=== PATIENT | female | born 1995 | race African-American/Black ===

== ENCOUNTER 2022-08-06 03:48 | Inpatient (IN) | payer OTHER ==
[2022-08-06] MEDS ORDERED: METHYLERGONOVINE 0.2 MG/ML 1 ML AMP IM PRN (05:42)
[2022-08-06] MEDS ORDERED: OXYTOCIN 10 UNIT/ML 1 ML VIAL IM PRN (05:42)
[2022-08-06] MEDS: LACTATED RINGERS 1,000 ML IV SCH ×2 (05:42→09:25)
[2022-08-06] MEDS ORDERED: LIDOCAINE 0.5% (PF) 5 MG/ML (50 ML SDV) SQ PRN (05:42)
[2022-08-06] MEDS ORDERED: CARBOPROST TROMETHAMINE 250 MCG/ML 1 ML AMP IM PRN (05:42)
[2022-08-06] MEDS ORDERED: TERBUTALINE 1 MG/ML VIAL SQ PRN (05:42)
[2022-08-06] MEDS ORDERED: OXYTOCIN 30 UNITS/500 ML NS 30 UNIT in SALINE 1 500ML.BAG IV SCH (05:45)
[2022-08-06 05:59] LABS: Basophils % (A) 0 %; Eosinophils % (A) 0 %; HCT 29.8 % (34.0-46.0); HGB 9.8 gm/dL (11.4-16.0); Lymphocytes # (A) 0.8 k/uL (1.0-4.8); Lymphocytes % (A) 10 %; MCH 26.9 pg (25.0-35.0); MCHC 32.8 g/dL (31.0-37.0); MCV 81.9 fL (80.0-100.0); Mean Platelet Volume 10.3; Monocytes # (A) 0.3 k/uL (0-1.0); Monocytes % (A) 4 %; Neutrophils # (A) 7.3 k/uL (1.3-7.7); Neutrophils % (A) 85 %; Platelet Count 170 k/uL (150-450); RBC 3.64 m/uL (3.80-5.40); RDW 14.5 % (11.5-15.5); WBC 8.5 k/uL (3.8-10.6)
--- NOTE | 2022-08-06 08:59 | P.HPOB ---
History of Present Illness H&P Date: 08/06/22 Chief Complaint: Strong regular uterine contractions This is a 26-year-old female 2 para 1001 EDC 08/18/2022 at 38-2/7 weeks' gestation who presented with strong regular uterine contractions from home. She denies fluid leakage or vaginal bleeding. Fetus is been active throughout the . Past medical history is significant for anxiety and depression, cholelithiasis. Past surgical history benign lymph nodes removed from the neck at age 6. Current medications vitamins daily, vitamin B6 daily, baby aspirin daily. ALLERGIES none known. Family history significant for cholelithiasis, diverticulosis. Obstetrical history vaginal delivery 2020 liveborn female infant. Social history patient is single, father of the baby is involved. She is a previous tobacco smoker but quit with her . She does admit to daily marijuana use for anxiety. She denies alcohol or other drug use. history is significant for blood type O+, rubella status immune. VDRL testing, urine culture, hepatitis B surface antigen, HIV testing, gonorrhea and chlamydia cultures, group B strep cultures all negative. One-hour Glucola 114. On exam patient is 5 foot 4 inches, 160 pounds, blood pressure 113/72. The general physical exam is within normal limits. Chest is clear. Cervix is 4 cm dilated, 70% effaced, vertex presentation, -2 station, soft, anterior. Artificial amniorrhexis reveals clear fluid. heart rate is in the 140s with frequent accelerations consistent with reactive NST. Impression: 38-2/7 weeks intrauterine , here in active labor. All signs reassuring. Plan: Patient at this time is requesting epidural. Continue close maternal and surveillance. Continue oxytocin augmentation as needed. Anticipate normal spontaneous vaginal delivery. Review of Systems Constitutional: Reports as per HPI Past Medical History Past Medical History: No Reported History History of Any Multi-Drug Resistant Organisms: None Reported Past Surgical History: No Surgical Hx Reported Past Anesthesia/Blood Transfusion Reactions: No Reported Reaction Past Psychological History: Anxiety, Depression Smoking Status: Current every day smoker Past Drug Use History: Marijuana - Past Family History Father History Unknown: Yes Medications and Allergies Home Medications Medication Instructions Recorded Confirmed Type Pnv No.154/Iron Fum/Folic Acid 1 capsule PO DAILY 08/06/22 08/06/22 History [ Plus Vitamin Tablet] Allergies Allergy/AdvReac Type Severity Reaction Status Date / Time No Known Allergies Allergy Verified 08/06/22 03:51 Exam Vital Signs Temp Pulse Resp BP Pulse Ox 08/06/22 05:42 97.6 F 84 113/72 98 08/06/22 03:50 98.7 F 89 17 117/65 98 Intake and Output 08/05/22 08/06/22 08/06/22 22:59 06:59 14:59 Other: # Voids 0 Weight 72.575 kg See dictation under HPI please Results Result Diagrams: 08/06/22 05:45 Abnormal Lab Results - Last 24 Hours (Table) 08/06/22 Range/Units 05:45 RBC 3.64 L (3.80-5.40) m/uL Hgb 9.8 L (11.4-16.0) gm/dL Hct 29.8 L (34.0-46.0) % Lymphocytes # 0.8 L (1.0-4.8) k/uL Assessment and Plan Assessment: 38-2/7 weeks intrauterine , early active spontaneous labor. All signs reassuring. Plan: Continue close maternal and surveillance. Epidural was requested and anesthesia aware, on way. Anticipate normal spontaneous vaginal delivery. Time with Patient: Less than 30
[2022-08-06 09:27] LABS: Amphetamine Screen,Urine Not Detected (NotDetected); Barbiturate Screen,Urine Not Detected (NotDetected); Benzodiazepines Screen,Urine Not Detected (NotDetected); Cocaine Screen,Urine Not Detected (NotDetected); Methadone Screen, Urine Not Detected (NotDetected); Opiate Screen,Urine Not Detected (NotDetected); Oxycodone Screen, Urine Not Detected (NotDetected); Phencyclidine Screen,Urine Not Detected (NotDetected); Tricyclic Antidepressant,Urine Not Detected (NotDetected); Urn Cannabinoid Scrn Detected (NotDetected)
[2022-08-06] MEDS ORDERED: ROPIVACAINE 100 MG, fentaNYL (PF). 200 MCG in SODIUM CHLORIDE 0.9% 76 ML EPIDURAL ONE (10:00)
[2022-08-06] MEDS ORDERED: SIMETHICONE 80 MG CHEWABLE PO PRN (11:49)
[2022-08-06] MEDS ORDERED: ZOLPIDEM 5 MG TAB PO PRN (11:49)
[2022-08-06] MEDS ORDERED: HYDROCORTISONE 2.5% RECTAL CREAM 30 GM TUBE RECTAL PRN (11:49)
[2022-08-06] MEDS ORDERED: LANOLIN CREAM 5 GM TUBE TOPICAL PRN (11:49)
[2022-08-06] MEDS ORDERED: BENZOCAINE/MENTHOL SPRAY 1 GM/SPRAY AEROSOL TOPICAL PRN (11:49)
[2022-08-06] MEDS ORDERED: diphenhydrAMINE 50 MG/ML 1 ML VIAL IVP PRN ×2 (11:49)
[2022-08-06] MEDS ORDERED: diphenhydrAMINE 50 MG CAP PO PRN (11:49)
[2022-08-06] MEDS ORDERED: diphenhydrAMINE 25 MG CAP PO PRN (11:49)
--- NOTE | 2022-08-06 11:49 | P.PROBDLV ---
Vaginal Delivery Note - . Vaginal Delivery Note: This is a 26-year-old female 2 para 101 EDC 08/18/2022 38-2/7 weeks' gestation who presented in early spontaneous labor from home, group B strep cultures negative, blood type O+, rubella status immune. Please see my dictated history and physical for details. Artificial amniorrhexis revealed clear fluid. Oxytocin augmentation was started and titrated. Epidural was placed per her request. She was judged to be completely dilated at 1127 hrs. and began the second stage of labor at that time. Perineal body was prepped and draped in the usual sterile fashion. With excellent maternal expulsive efforts the 's head delivered occiput anterior and restituted accordingly. There was no nuchal cord. The right or anterior shoulder was gently delivered at which time the oropharynx, nasopharynx, and external nares were all bulb suctioned on the perineal body. Patient was officially delivered of a liveborn female infant at 1134 hours. Umbilical cord was doubly clamped and ligated, she was handed to waiting nurses for evaluation where scores of 9 and 9 at one and 5 minutes respectively were given. Placenta delivered spontaneously, it was inspected and noted to be intact with trivascular cord and a membranous insertion, at 1136 hours. At this time the perineal body was redraped. Careful inspection of the cervix, vagina, perineum, periurethral, and perirectal areas revealed a very small first-degree superficial right perineal laceration. This is repaired in the usual fashion with a singular [id number] suture of 3-0 repeat. Estimated blood loss 200 mL's. All sponge needle and enhancement counts are correct. weighs 2685 g or 5 lbs. 15 oz. The patient and her family are allowed to begin the bonding experience in the LDR.
[2022-08-06] MEDS ORDERED: ACETAMINOPHEN TAB 325 MG TAB PO PRN (12:55)
[2022-08-06] MEDS: IBUPROFEN 600 MG TAB PO PRN ×2 (14:04→19:47)
[2022-08-06] MEDS: SENNOSIDES-DOCUSATE SODIUM 1 EACH TAB PO SCH (19:47)
[2022-08-07] MEDS: IBUPROFEN 600 MG TAB PO PRN ×2 (04:29→20:22)
[2022-08-07 07:48] LABS: Basophils % (A) 0 %; Eosinophils % (A) 0 %; HCT 28.1 % (34.0-46.0); HGB 9.1 gm/dL (11.4-16.0); Hypochromasia Slight; Lymphocytes # (A) 1.1 k/uL (1.0-4.8); Lymphocytes % (A) 12 %; MCH 27.1 pg (25.0-35.0); MCHC 32.5 g/dL (31.0-37.0); MCV 83.5 fL (80.0-100.0); Mean Platelet Volume 10.3; Monocytes # (A) 0.4 k/uL (0-1.0); Monocytes % (A) 5 %; Neutrophils # (A) 7.1 k/uL (1.3-7.7); Neutrophils % (A) 80 %; Platelet Count 175 k/uL (150-450); RBC 3.36 m/uL (3.80-5.40); WBC 8.9 k/uL (3.8-10.6)
[2022-08-07] MEDS: SENNOSIDES-DOCUSATE SODIUM 1 EACH TAB PO SCH ×2 (08:24→20:22)
--- NOTE | 2022-08-07 11:34 | P.DS ---
Providers Date of admission: 08/06/22 05:25 Expected date of discharge: 08/07/22 Attending physician: Gina Roman Primary care physician: Stated None - Discharge Diagnosis(es) (1) Normal vaginal delivery Current Visit: Yes Status: Acute Hospital Course: the patient is a 26-year-old 2 para 1001 admitted at 38-2/7 weeks by good dating parameters in early labor. Her has been uncomplicated and group B strep status is negative. On labor and delivery, the patient hadunofficial rupture of membranes and an epidural catheter placed. She then had Pitocin augmentation started. She progressed to complete and then pushed to a normal spontaneous vaginal delivery of a viable 5 lbs. 15 oz. baby girl with Apgars of 9 at 1 minute and 9 at 5 minutes. Her course was unremarkable with vital signs remaining stable and her temperature was afebrile throughout. She was deemed stable for discharge on day #1 was discharged home to follow-up in the office in 6 weeks' time routinely. Discharge instructions included calling for any significantly increased bleeding or foul-smelling lochia, significantly increased fever or abdominal pain, perineal complaints, breast complaints, or anything else that concerned her. She is additionally instructed to have nothing in the vagina for at least 6 weeks time to include intercourse. She understood her instructions and agrees to follow up as noted above. Discharge medications included only [id number] analgesic pain medications as well as continued vitamins as she has opted to breast-feed. Maternal blood typeis O+ and rubella status is immune. Procedures: #1. Artificial rupture of membranes #2. Epidural analgesia #3. Pitocin a ugmentation #4. Normal spontaneous vaginal delivery #5. Repair of perineal laceration Patient Condition at Discharge: Stable Plan - Discharge Summary New Discharge Prescriptions: No Action Pnv No.154/Iron Fum/Folic Acid [ Plus Vitamin Tablet] 1 capsule PO DAILY Discharge Medication List Pnv No.154/Iron Fum/Folic Acid [ Plus Vitamin Tablet] 1 capsule PO DAILY 08/06/22 [History] Follow up Appointment(s)/Referral(s): Gina Roman MD [STAFF PHYSICIAN] - 6 Weeks Discharge Disposition: HOME SELF-CARE
[2022-08-08] MEDS: SENNOSIDES-DOCUSATE SODIUM 1 EACH TAB PO SCH (07:57)
[2022-08-08 09:03] VITALS: RESP 20
[2022-08-08] MEDS: IBUPROFEN 600 MG TAB PO PRN (12:59)
[2022-08-08 16:35] VITALS: BP 100/69; PULSE 75; TEMP 98.3
== END 2022-08-08 17:05 | disposition home or self-care (01) | DRG 806 ==
LOC: FBPOP 03:48 → 4FBP 05:25
PROVIDERS: ADMIT Obstetrics & Gynecology; ATTEND Obstetrics & Gynecology
PROC: 10E0XZZ Delivery of Products of Conception, External Approach (ICD-10-PCS; principal; 2022-08-06)
PROC: 4A0HXCZ Measurement of Products of Conception, Cardiac Rate, External Approach (ICD-10-PCS; 2022-08-06)
PROC: 10907ZC Drainage of Amniotic Fluid, Therapeutic from Products of Conception, Via Natural or Artificial Opening (ICD-10-PCS; 2022-08-06)
PROC: 3E033VJ Introduction of Other Hormone into Peripheral Vein, Percutaneous Approach (ICD-10-PCS; 2022-08-06)
PROC: 0HQ9XZZ Repair Perineum Skin, External Approach (ICD-10-PCS; 2022-08-06)
PROC: 0UQMXZZ Repair Vulva, External Approach (ICD-10-PCS; 2022-08-06)
DX: O70.0 First degree perineal laceration during delivery (principal); O99.324 Drug use complicating childbirth; Z37.0 Single live birth; O99.62 Diseases of the digestive system complicating childbirth; F17.210 Nicotine dependence, cigarettes, uncomplicated; F32.A Depression, unspecified; F41.9 Anxiety disorder, unspecified; O71.82 Other specified trauma to perineum and vulva; O99.334 Smoking (tobacco) complicating childbirth; O99.344 Other mental disorders complicating childbirth; Z3A.38 38 weeks gestation of pregnancy; Z79.82 Long term (current) use of aspirin
CPT/HCPCS: 59025; 80306; 85025; 86850; 86900; 86901; 99213

== ENCOUNTER → 2022-10-19 | Outpatient (CLI) | payer OTHER ==
[2022-10-19 14:31] LABS: Basophils # (A) 0.05 X 10*3/uL (0.00-0.10); Basophils % (A) 0.6 %; Eosinophils % (A) 1.1 %; HCT 32.9 % (37.2-46.3); HGB 10.7 g/dL (12.0-15.0); Immature Grans, Automated 0.4 %; Lymphocytes # (A) 2.17 X 10*3/uL (0.90-5.00); Lymphocytes % (A) 24.2 %; MCH 26.2 pg (27.0-32.0); MCHC 32.5 g/dL (32.0-37.0); MCV 80.4 fL (80.0-97.0); Monocytes # (A) 0.33 X 10*3/uL (0.20-1.00); Monocytes % (A) 3.7 %; NRBC Per 100 WBC 0 /100 WBCS (0.0-0.0); Neutrophils # (A) 6.28 X 10*3/uL (1.80-7.70); Platelet Count 222 X 10*3/uL (140-440); RBC 4.09 X 10*6/uL (4.10-5.20); RDW 16.1 % (11.5-14.5); WBC 8.97 X 10*3/uL (4.50-10.00)
== END | disposition home or self-care (01) ==
LOC: LABPAT 08:33
PROVIDERS: ATTEND Obstetrics & Gynecology
DX: Z30.2 Encounter for sterilization (principal)
CPT/HCPCS: 85025